=== PATIENT | male | born 1995 | race Two or more races ===

== ENCOUNTER 2020-05-24 10:49 | Outpatient (REF) | payer OTHER, SELFPAY | END 2020-05-24 10:50 | disposition home or self-care (01) | LOC: HO.LAB 10:49 | PROVIDERS: Visit Provider Internal Medicine | DX: Z20.828 Contact with and (suspected) exposure to other viral communicable diseases (principal) | CPT/HCPCS: C9803; U0003 ==

== ENCOUNTER 2020-06-06 11:43 | Outpatient (REF) | payer OTHER, SELFPAY | END 2020-06-06 11:44 | disposition home or self-care (01) | LOC: HO.LAB 11:43 | PROVIDERS: Visit Provider Internal Medicine | DX: Z20.828 Contact with and (suspected) exposure to other viral communicable diseases (principal) | CPT/HCPCS: C9803; U0003 ==

== ENCOUNTER 2020-12-07 19:11 | Emergency (ER) | payer BC, SELFPAY ==
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
[2020-12-07 19:49] VITALS: BP 120/65; PULSE 90; RESP 16; TEMP 36.9; O2SAT 97; BMI 33.7
[2020-12-07 20:29] VITALS: BP 121/82; PULSE 91; RESP 16; O2SAT 100
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
[2020-12-07] MEDS: Ibuprofen 400 MG TABLET PO (21:29)
[2020-12-07] MEDS: Acetaminophen 325 MG TABLET 975 MG PO (21:29)
[2020-12-07] MEDS: Diphth,Pertus(ACell),Tet Adult 0.5 ML SYRINGE IM (21:30)
[2020-12-07 21:50] VITALS: BP 119/75; PULSE 73; RESP 16; O2SAT 99
== END 2020-12-07 22:49 | disposition home or self-care (01) ==
PROVIDERS: Emergency Provider Student in an Organized Health Care Education/Training Program; PCP Internal Medicine
DX: S10.91XA Abrasion of unspecified part of neck, initial encounter (principal); T14.8XXA Other injury of unspecified body region, initial encounter; Y04.2XXA Assault by strike against or bumped into by another person, initial encounter; Y93.9 Activity, unspecified; Y92.9 Unspecified place or not applicable; Y99.9 Unspecified external cause status
CPT/HCPCS: 73030; 73130; 90471; 90715; 99284

== ENCOUNTER 2022-11-27 15:10 | Outpatient (REF) | payer OTHER, SELFPAY ==
[2022-11-27 15:22] LABS: MANUAL DIFF FLAG NO
[2022-11-27 15:31] LABS: Basophils Absolute Auto 0.1 X10*3/uL (0.0-0.2); Basophils Percent Auto 0.7 % (0-2); Eosinophils Absolute Auto 0.1 X10*3/uL (0.0-0.4); Eosinophils Percent Auto 1.2 % (0-4); Hematocrit 40.4 % (42.0-52.0); Hemoglobin 12.8 g/dl (14.0-18.0); Imm Gran Abs Auto 0.07 X10*3/uL (0.00-0.03); Imm Gran Pct Auto 0.9 % (0.0-0.4); Lymphocytes Absolute Auto 2.8 X10*3/uL (1.2-4.9); Lymphocytes Percent Auto 34.8 % (20-40); Mean Corpuscular HGB Conc 31.7 g/dl (31.0-36.0); Mean Corpuscular Hemoglobin 26.9 pg (27.0-33.0); Mean Corpuscular Volume 85.1 fL (80.0-98.0); Mean Platelet Volume 10.2 fL (9.4-12.4); Monocytes Absolute Auto 0.7 X10*3/uL (0.1-1.2); Monocytes Percent Auto 8.2 % (2-11); Neutrophils Absolute Auto 4.4 x10*3/uL (2.0-8.3); Neutrophils Percent Auto 54.2 % (45-73); Platelet Count 281 X10*3/uL (160-400); Red Blood Count 4.75 X10*6/uL (4.60-5.80); White Blood Count 8.1 X10*3/uL (4.8-10.8)
[2022-11-27 15:39] LABS: Prothrombin Time 11.3 SEC (10.0-13.1)
[2022-11-27 15:41] LABS: Partial Thromboplastin Time 33.6 SEC (26.0-36.4)
[2022-11-27 16:17] LABS: Alanine Aminotransferase 16 U/L (0-40); Albumin Level 4.4 g/dL (3.5-5.0); Alkaline Phosphatase 57 U/L (39-117); Anion Gap 15 (12-20); Aspartate Amino Transferase 18 U/L (5-37); Bilirubin Total 0.4 mg/dL (0.0-1.0); Blood Urea Nitrogen 15 mg/dL (9-16); Calcium 9.9 mg/dL (8.4-10.2); Carbon Dioxide 25 mmol/L (22-29); Chloride 105 mmol/L (96-108); Estimated Glomerular Filt Rate > 60; Glucose Random 80 mg/dL (60-115); Iron 63 mcg/dL (45-160); Percent Iron Saturation 20 % (15-50); Sodium 141 mmol/L (135-145); Total Iron Binding Capacity 315 mcg/dL (228-428); Unsaturated Iron Binding 252 ug/dL
[2022-11-27 16:37] LABS: Free T4 (Free Thyroxine) 0.93 ng/dL (0.71-1.85); Thyroid Stimulating Hormone 3.55 uIU/mL (0.32-4.0)
[2022-12-05 20:38] LABS: Testosterone, Free 55.8 pg/mL (35.0-155.0); Testosterone, Total 303 ng/dL (250-1100)
== END 2022-11-27 15:11 | disposition home or self-care (01) ==
LOC: HO.LAB 15:10
PROVIDERS: PCP Internal Medicine; Visit Provider Internal Medicine
DX: D64.9 Anemia, unspecified (principal); R53.83 Other fatigue; R04.0 Epistaxis
CPT/HCPCS: 36415; 80053; 83540; 84402; 84403; 84439; 84443; 85025; 85610; 85730

== ENCOUNTER 2025-02-09 15:58 | Outpatient (AMB) | payer OTHER, SELFPAY ==
--- NOTE | 2025-02-09 16:17 | A.OFFPC_ITS ---
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: No Accompanied by: Self / Same As Patient Allergies No Known Allergies Allergy (Verified 02/09/25 16:17) Medication List - Last Reconciled 02/09/25 by ALVA Addison No Known Home Meds Tobacco use date assessed: 02/09/25 Dental Screening Dental Screen Date: 02/09/25 Did you have a dental visit in the last 12 months?: Yes Did you have a dental problem in the last 6 months where you did not have access to dental care?: No Was dental information given to patient?: No HPI HPI Comments History of Present Illness Details 29-year-old male with history of asthma and obesity presents to the office today to establish care and for annual physical exam. He currently lives with his filuise. 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 He reports he does follow a healthy diet but is not exercising. No alcohol use, cigarette smoking, illicit drug or marijuana use. Asthma-no recent exacerbation, does not use albuterol inhaler Concerns: Increased frequency of BM's- about 3 times daily, diarrhea or soft stool. No abd pain, n/v, hematochezia, or melena. Working on improving diet to help with weight loss. H/o open fundoplication Chronic tinnitus R>L Following with [facility] for atypical nevi Health maintenance: Eye exam is up-to-date Dental visits twice yearly Colonoscopies to started age 46 Reviewed past medical, surgical, social, family history ROS: General: No fevers, malaise, unintentional weight loss HEENT: No blurred vision, diplopia. No sore throat, nasal congestion, rhinorrhea, sinus pain, ear pain. See HPI Neck - no adenopathy Cardiovascular: No chest pain, palpitations, or leg edema Respiratory: No shortness of breath, wheezing, cough GI: No dysphagia, odynophagia, globus sensation. No abdominal pain, nausea, vomiting, diarrhea, constipation, melena, hematochezia : No dysuria, hematuria, increased urinary frequency, decreased urinary output. No testicular swelling or pain. No penile discharge MSK: No myalgia, back pain, arthralgias Neuro: No headaches, weakness, paresthesias Psych: no depression/anxiery. No AH/VH. No SI/HI Skin: No rashes or lesions EXAM: Constitutional - Awake and Alert, No apparent distress Eyes - PERRLA, EOMI. Anicteric Ears - external ears normal, canals clear, TMs intact and pearly jacome with good cone of light Nose- septum midline, nares clear, no sinus tenderness Mouth/throat- mucosa moist, tongue and uvula midline, no erythema/edema or tonsillar adenopathy. Neck-trachea midline, thyroid symmetric without palpable nodules, no adenopathy Cardiovascular - S1S2, RRR, No edema Respiratory - Normal lung expansion, Normal respiratory effort, No respiratory distress, CTA bilaterally Gastrointestinal - NT / ND; +BS; No rebound or guarding - No CVA tenderness Extremities - no calf tenderness bilaterally, no swelling Musculoskeletal - Normal inspection, normal ROM Skin - Warm/Dry, no concerning lesions Neurological - Alert & oriented x3, CN II-XII in tact, 5/5 strength BUE and BLE, 2+ patellar reflexes, sensation intact Psychological - Appropriate affect PFSH Medical History (Updated 02/11/25 @ 13:00 by ALVA Addison) IBS (irritable bowel syndrome) H/O fracture of radius Obesity Asthma Tinnitus No known health problems Surgical History (Updated 02/11/25 @ 12:58 by ALVA Addison) History of Michael fundoplication Family History (Updated 02/09/25 @ 17:05 by ALVA Addison) Mother No pertinent past medical history Father No pertinent past medical history Paternal Aunt No problems noted. Paternal Aunt FH: breast cancer Social History Housing: House ([facility]) Patient Tobacco Use Status: Never used Tobacco e-Cigarette/Vaping Use: Never Used service: No Current occupational status: employed Cognitive needs: No Hearing needs: No Vision needs: Yes (Rx glasses) Questionnaire PHQ-9 Over the last 2 weeks, how often have you been bothered by any of the following problems? 1. Little interest or pleasure in doing things: not at all 2. Feeling down, depressed, or hopeless: not at all 3. Trouble falling or staying asleep, or sleeping too much: not at all 4. Feeling tired or having little energy: not at all 5. Poor appetite or overeating: not at all 6. Feeling bad about yourself - or that you are a failure or have let yourself or your family down: not at all 7. Trouble concentrating on things, such as reading the newspaper or watching television: not at all 8. Moving or speaking so slowly that other people could have noticed. Or the opposite - being so fidgety or restless that you have been moving around a lot more than usual: not at all 9. Thoughts that you would be better off or of hurting yourself in some way: not at all Total score: 0 Depression Screening Interpretation: Negative Depression Screening Done: Yes 53707 - PHQ-9 Billing: Yes Source: Developed by Drs. Roger Craven, Almaz Estrada, Harsha Atkins and colleagues, with an educational cl from [email or web address]. Thrive Questionnaire Date Thrive assessed: 02/09/25 I am a: Patient What is your living situation today?: I have a steady place to live Within the past 12 months, did the food you bought not last and you didn't have the money to get more?: Never true Within the past 12 months, did you worry whether your food would run out before you got money to buy more?: Never true Do you have trouble paying for medicines?: No Do you have trouble getting transportation to medical appointments?: No Do you have trouble paying your heating and electricity bill?: No Do you have trouble taking care of your child, family member or friend?: No Do you have trouble with day-to-day activities such as bathing, preparing meals, shopping, managing finances, etc.?: No Are you currently unemployed and looking for a job?: No Are you interested in more education?: No Please select the resources that you would like help with: None THRIVE Score: 0 NASIR-7 AMB Questionnaire NASIR-7 Date NASIR - 7 assessed: 02/09/25 Feeling nervous, anxious, or on edge: 1 = Several days Not being able to stop or control worryin = Several days Worrying too much about different things: 1 = Several days Trouble relaxin = Several days Being so restless that it is hard to sit still: 0 = Not at all Becoming easily annoyed or irritable: 1 = Several days Feeling afraid as if something awful might happen: 1 = Several days Total NASIR-7 score (0-4 normal; 5-9 mild; 10-14 moderate; 15-21 severe): 6 Source: Developed by Drs. Roger Craven, Almaz Estrada, Harsha Atkins and colleagues, with an educational cl from [employer]. NASIR-7 Assessment Billing NASIR-7 Assessment Tool: NASIR-7 Assessment 11876 Physical exam (Primary Care) Vital Signs: Last Vital Signs Temp 98.1 F 02/09/25 16:32 Pulse 71 02/09/25 16:32 Resp 16 02/09/25 16:32 BP 124/90 H 02/09/25 16:32 Pulse Ox 98 02/09/25 16:32 Oxygen Delivery Method Room Air 02/09/25 16:32 BMI result Body Mass Index 38.4 Tobacco/Smoking Status: Tobacco use Status Tobacco use date assessed 02/09/25 02/09/25 16:35 Patient Tobacco Use Status Never used Tobacco 02/09/25 16:35 e-Cigarette/Vaping Use Never Used 02/09/25 16:35 PHQ-9: PHQ-9 Score PHQ-9: Total score 0 02/09/25 16:48 Depression Screening Interpretation: Negative Thrive Assessment: Date of Thrive Assessment Date Thrive assessed 02/09/25 02/09/25 16:38 Coding Level of Care Code New Pt Prev Care 18-39yr(16860 Diagnoses Routine medical exam Z00.00 Tinnitus H93.19 Asthma J45.909 Obesity E66.9 IBS (irritable bowel syndrome) K58.9 Additional Codes PHQ-9 - 38309 - PHQ-9 Billing: Yes ([id number]) NASIR-7 Assessment Billing - NASIR-7 Assessment Tool: NASIR-7 Assessment 53278 ([id number]) Assessment & Plan Assessment & Plan (1) Routine medical exam: Code(s): Z00.00 - Encounter for general adult medical examination without abnormal findings Plan: 29-year-old male presenting for annual physical exam and to establish care (2) Tinnitus: Code(s): H93.19 - Tinnitus, unspecified ear Category: Medical Plan: Refer to audiology (3) Asthma: Code(s): J45.909 - Unspecified asthma, uncomplicated Category: Medical Plan: Stable, no recent exacerbation (4) Obesity: Code(s): E66.9 - Obesity, unspecified Category: Medical Plan: Weight loss efforts discussed. Recommend diet lower in simple sugars/carbohydrates, highly processed foods and increase in protein, fruits, vegetables. Recommend at least 150 minutes of moderate intensity exercise weekly. BMI 38.4 (5) IBS (irritable bowel syndrome): Code(s): K58.9 - Irritable bowel syndrome, unspecified Category: Medical Plan: Recommend FODMAP diet as well as regular exercise Plan Routine screening labs as ordered below Colonoscopies was started at age 46 Continue following for annual skin exams and use sun protection Annual eye exams Wear seat belt in car Recommend regular exercise and healthy diet Follow up in 1 year, sooner if needed Orders: Orders Basic Metabolic Panel 02/09/25 Z00. - Encounter for general adult medical examination without abnormal findings Complete Blood Count Auto Diff 02/09/25 Z00. - Encounter for general adult medical examination without abnormal findings Hemoglobin A1c 02/09/25 Z00. - Encounter for general adult medical examination without abnormal findings TSH reflex Free T4 02/09/25 Z00. - Encounter for general adult medical examination without abnormal findings Lipid Panel 02/09/25 Z00. - Encounter for general adult medical examination without abnormal findings Liver Panel 02/09/25 Z00. - Encounter for general adult medical examination without abnormal findings Referrals Audiology Referral H93.19 - Tinnitus, unspecified ear, Z00. - Encounter for general adult medical examination without abnormal findings
[2025-02-09 16:32] VITALS: BP 124/90; PULSE 71; RESP 16; TEMP 36.7; O2SAT 98; BMI 38.4
== END 2025-02-09 17:08 | disposition home or self-care (01) ==
LOC: HO.HMCHD 15:58
PROVIDERS: PCP Physician Assistant; Visit Provider Physician Assistant
DX: Z00.00 Encounter for general adult medical examination without abnormal findings (principal); H93.19 Tinnitus, unspecified ear; J45.909 Unspecified asthma, uncomplicated; E66.9 Obesity, unspecified; K58.9 Irritable bowel syndrome, unspecified

== ENCOUNTER → 2025-02-09 15:58 | Outpatient (BNVA) | payer OTHER, SELFPAY | PROVIDERS: PCP Physician Assistant; Visit Provider Physician Assistant | DX: Z00.00 Encounter for general adult medical examination without abnormal findings (principal); H93.19 Tinnitus, unspecified ear; J45.909 Unspecified asthma, uncomplicated; E66.9 Obesity, unspecified; Z68.38 Body mass index [BMI] 38.0-38.9, adult; K58.9 Irritable bowel syndrome, unspecified; Z13.31 Encounter for screening for depression; Z13.39 Encounter for screening examination for other mental health and behavioral disorders | CPT/HCPCS: 96127 ==

== ENCOUNTER 2025-02-16 07:25 | Outpatient (REF) | payer OTHER, SELFPAY ==
[2025-02-16 07:44] LABS: MANUAL DIFF FLAG NO
[2025-02-16 07:52] LABS: Hematocrit 39.7 % (42.0-52.0); Hemoglobin 12.9 g/dl (14.0-18.0); Imm Gran Abs Auto 0.05 X10*3/uL (0.00-0.03); Imm Gran Pct Auto 0.7 % (0.0-0.4); Lymphocytes Absolute Auto 2.0 X10*3/uL (1.2-4.9); Mean Corpuscular HGB Conc 32.5 g/dl (31.0-36.0); Mean Corpuscular Hemoglobin 27.7 pg (27.0-33.0); Mean Corpuscular Volume 85.2 fL (80.0-98.0); NRBC Abs Auto 0.000 X10*3/uL (0.0-0.012); NRBC Pct Auto 0.0 /100WBC (0.0-0.2); Platelet Count 275 X10*3/uL (160-400); Red Blood Count 4.66 X10*6/uL (4.60-5.80); White Blood Count 7.1 X10*3/uL (4.8-10.8)
[2025-02-16 08:00] LABS: Hemoglobin A1C 95.1796 umol/L; Total Hemoglobin (HGBA1C) 3276.5881 umol/L
[2025-02-16 08:15] LABS: Alanine Aminotransferase 15 U/L (0-40); Albumin Level 4.7 g/dL (3.5-5.0); Alkaline Phosphatase 46 U/L (39-117); Anion Gap 14 (12-20); Aspartate Amino Transferase 22 U/L (5-37); Blood Urea Nitrogen 13 mg/dL (9-16); Calcium 9.4 mg/dL (8.4-10.2); Carbon Dioxide 25 mmol/L (22-29); Chloride 107 mmol/L (96-108); Cholesterol 146 mg/dL (<200); Estimated Glomerular Filt Rate > 60; HDL Cholesterol 47 mg/dL (>40); Potassium 4.1 mmol/L (3.3-5.1); Sodium 142 mmol/L (135-145); Total Protein 7.6 g/dL (6.5-8.0); Triglycerides 92 mg/dL (<150)
[2025-02-16 09:27] LABS: Free T4 (Free Thyroxine) 1.03 ng/dL (0.71-1.85)
== END 2025-02-16 07:26 | disposition home or self-care (01) ==
LOC: HO.LAB 07:25
PROVIDERS: PCP Physician Assistant; Visit Provider Physician Assistant
DX: Z00.00 Encounter for general adult medical examination without abnormal findings (principal); Z13.1 Encounter for screening for diabetes mellitus; Z13.6 Encounter for screening for cardiovascular disorders; Z13.29 Encounter for screening for other suspected endocrine disorder; Z13.0 Encounter for screening for diseases of the blood and blood-forming organs and certain disorders involving the immune mechanism
CPT/HCPCS: 36415; 80048; 80061; 80076; 83036; 84439; 84443; 85025